=== PATIENT | male | born 1990 | race African-American/Black ===

== ENCOUNTER 2022-06-25 08:58 | Emergency (ER) | payer MEDICAID, OTHER ==
[~2022-06-25] VITALS: Ht 180.3 cm; Wt 91.0 kg
[2022-06-25 09:04] VITALS: BP 149/104
[2022-06-25] MEDS ORDERED: GUAI600T26 MT (09:38)
[2022-06-25] MEDS ORDERED: IBUP-2030 MT (09:38)
[2022-06-25] MEDS ORDERED: ALBU6.7H3 INH (09:38)
== END 2022-06-25 09:56 | disposition home or self-care (01) ==
LOC: ER 08:58
DX: J06.9 Acute upper respiratory infection, unspecified (principal); J02.9 Acute pharyngitis, unspecified; R51.9 Headache, unspecified; M79.10 Myalgia, unspecified site; F50.9 Eating disorder, unspecified; F12.10 Cannabis abuse, uncomplicated; R01.1 Cardiac murmur, unspecified; Z88.0 Allergy status to penicillin
CPT/HCPCS: 71045; 99283